=== PATIENT | male | born 1950 | race African-American/Black ===

== ENCOUNTER 2021-10-04 14:06 | Inpatient (IN) | payer OTHER ==
[~2021-10-04] VITALS: Ht 180.3 cm; Wt 102.6 kg
--- NOTE | ~2021-10-04 | EMS ---
[address] [address] EMS Patient Care Report Name: ARCADIO CEE Room #: 448-P ADM IN M.R.#: [id number] Admission: 10/04/21 Attend Phys: David Dowling MD Discharge: Date of : 48 Report #: [id number] THIS REPORT FOR: //name// Report Transmitted: 10/05/2021 12:50 EMS Care Summary [place], [place]/[facility] Incident [phone] @ 10/04/2021 13:32 Incident Location [address] [place] [address] Patient ARCADIO CEE Male, 71 Years 1950 Patient Address [address] [place] [address] Patient History Chronic Obstructive Pulmonary Disease (COPD),Diabetes,Hypertension (HTN), Patient Allergies No known allergies, Patient Medications None Reported, Chief Complaint COPD EXACERBATION Disposition Transported No Lights/[place] Dispatch Reason Breathing Problem Transported To [facility] Narrative M537 DISPATCHED TO A BREATHING PROBLEM AT ADDRESS STATED ABOVE. M537 ARRIVED ON SCENE TO FIND PT, A 71YO MALE SITTING OUTSIDE SMOKING A [address] [address] EMS Patient Care Report Name: ARCADIO CEE Room #: 448-P ADM IN M.Torsten.#: [id number] Admission: 10/04/21 Attend Phys: David Dowling MD Discharge: Date of : 48 Report #: [id number] CIGARETTE IN THE COLD WEATHER WITH SHORTS ON. UPON INITIAL CONTACT, PT IS SELF MAINTAINING OWN ABC???S, ALERT AND ORIENTED, AND NO OBVIOUS INJURIES NOTED. PT STATES HE HAS BEEN HAVING DIFFICULTY BREATHING AND FEELS LIKE HES JUST SHORT OF AIR. PT STATES HE HAS A HX OF COPD AND WAS HOSPITALIZED 3 WEEKS AGO AT [facility]. PT STATES HIS ABDOMEN JUST FEELS REALLY FULL. UPON PRIMARY ASSESSMENT ON SCENE, PT SKIN IS PWD AND PUPILS ARE ROUND EQUAL AND REACTIVE. PT HAS STRONG RADIAL PULSES AND GOOD CAPILLARY REFILL. PT IS ABLE TO SPEAK CLEARLY AND MOVE PURPOSEFULLY. PMS IS INTACT IN ALL EXTREMITIES. PT DENIES ANY CHEST PAIN, NAUSEA, VOMITING, OR DIARRHEA OR ANY OTHER PAIN OR DISCOMFORT NOT ASSOCIATED WITH CHIEF COMPLAINT. PT WAS PLACED ON COT IN A POSITION OF COMFORT AND SECURED WITH ALL AVAILABLE STRAPS. PT LOADED INTO AMBULANCE VIA STRETCHER AND VITALS ASSESSED ON SCENE NOTED ABOVE. PT CONNECTED TO 4L OF OXYGEN VIA NASAL CANULA IMPROVING ROOM AIR SATS FROM 85% TO 95%. VITALS REASSESSED ENROUTE WHILE CONTINUOUSLY MONITORING ABC???S. RADIO REPORT CALLED INTO ER AND PT TRANSPORTED TO HOSPITAL WITHOUT INCIDENT. UPON ARRIVAL TO ED, PT WAS BROUGHT INSIDE TO ER VIA STRETCHER AND TRANSFERRED TO HOSPITAL BED. ALL PT BELONGINGS TRANSFERRED TO PTS ROOM. VERBAL REPORT GIVEN TO RECEIVING RN AND PT CARE TRANSFERRED. Initial Vitals @13:50P: 82,R: 18,BP: 187/92,SpO2: 95, @13:42P: 78,R: 20,BP: 160/92,Pain: 0/10,GCS: 15,Glucose: 106,SpO2: 85,Revised Trauma: 12, Assessments @13:42MENTAL:Person Oriented,Event Oriented,Place Oriented,Time Oriented,SKIN:HEENT:Eyes: Right Pupil: 3-mm,Eyes: Left Pupil: 3-mm,Head/Face: No Abnormalities,Neck/Airway: No Abnormalities,LUNG SOUNDS:Left Upper: Distension,Right Lower: Distension,Right Upper: Distension,Left Lower: Distension,ABDOMEN:Left Upper: Distension,Right Lower: Distension,Right Upper: Distension,Left Lower: Distension,PELVIS//GI:No Abnormalities,EXTREMITIES:Capillary Refill: Right Upper: 3 Sec,Left Arm: No Abnormalities,Right Arm: No Abnormalities,Left Leg: No Abnormalities,Right Leg: [facility] [address] [place] [address] EMS Patient Care Report Name: ARCADIO CEE Room #: 448-P ADM IN M.R.#: [id number] Admission: 10/04/21 Attend Phys: David Dowling MD Discharge: Date of : 48 Report #: [id number] No Abnormalities,PULSE:Radial: 2+ Normal,NEURO:No Abnormalities, Impression Chronic Obstructive Pulmonary Disease (COPD) Procedures @13:38 ALS Assessment Response: UnchangedSucceeded @13:40 Stretcher Response: Unchanged @13:43 Oxygen FlowRate: 4 Device: Nasal Cannula (NC) Response: ImprovedSucceeded Timeline 13:31,Call Received 13:31,Dispatch Notified 13:32,Dispatched 13:33,En Route 13:37,On Scene 13:38,At Patient 13:38,ALS Assessment,Response: UnchangedSucceeded, 13:40,Stretcher,Response: Unchanged 13:42,BP: 160/92 M,PULSE: 78,RR: 20 R,SPO2: 85 Ox,ETCO2: ,B,PAIN: 0,GCS: 15, 13:43,Oxygen FlowRate: 4 Device: Nasal Cannula (NC) Response: ImprovedSucceeded, 13:48,Depart Scene 13:50,BP: 187/92 M,PULSE: 82,RR: 18 R,SPO2: 95 Ox,ETCO2: ,BG: ,PAIN: ,GCS: , 14:07,At Destination 14:11,Call Closed Disclaimer v1.1 Copyright 2021 [facility] [place] This EMS Care Summary contains data elements from the applicable legal record (which may be displayed differently). It is designed to provide pertinent information for the following purposes: continuity of care, clinical quality, and state data reporting. The complete legal record is available to ED staff and administrators of the receiving hospital in [facility]'s Patient Tracker. All data is provided "as is."
[2021-10-04 14:08] VITALS: BP 168/106
[2021-10-04 14:39] LABS: HEMATOCRIT 29.6 % (42.0-52.0); MCHC 27.2 g/dL (28.0-37.0); MCV 69.9 fL (80.0-100.0); PLATELET COUNT 185 thou/uL (150-400); RBC 4.23 mil/uL (4.50-6.00); RDW 26.5 % (10.5-14.5); WBC 14.7 thou/uL (4.0-11.0)
[2021-10-04 14:45] LABS: CALCIUM 9.4 mg/dL (8.5-10.1); CREATININE 1.5 mg/dL (0.7-1.3); POTASSIUM 4.4 mmol/L (3.5-5.1)
[2021-10-04 14:56] LABS: ALBUMIN 3.4 g/dL (3.4-5.0); TOTAL BILIRUBIN 0.9 mg/dL (0.2-1.0); TOTAL PROTEIN 6.3 g/dL (6.4-8.2)
[2021-10-04 15:12] LABS: ABSOLUTE NEUTROPHILS 3.2 thou/uL (1.4-8.2)
[2021-10-04 15:13] LABS: HYPOCHROMASIA 3+
[2021-10-04 15:14] LABS: MICROCYTES 1+
[2021-10-04 15:15] LABS: ANISOCYTOSIS 2+
[2021-10-04 18:21] VITALS: BP 180/108
--- NOTE | 2021-10-04 22:00 | NUR ---
REPORT CALLED TO FLOOR, GIVEN TO JEANINE ANDUJAR
[2021-10-04 22:10] VITALS: BP 180/108
[2021-10-05 03:42] LABS: HEMATOCRIT 27.9 % (42.0-52.0); HEMOGLOBIN 7.6 gm/dL (14.0-18.0); MCH 19.1 pg (26.0-34.0); MCHC 27.2 g/dL (28.0-37.0); MCV 70.2 fL (80.0-100.0); RBC 3.98 mil/uL (4.50-6.00); RDW 26.1 % (10.5-14.5); WBC 13.1 thou/uL (4.0-11.0)
[2021-10-05 04:46] LABS: CALCIUM 8.9 mg/dL (8.5-10.1); CREATININE 1.5 mg/dL (0.7-1.3); POTASSIUM 4.8 mmol/L (3.5-5.1)
[2021-10-05 06:49] VITALS: BP 176/60
--- NOTE | 2021-10-05 07:59 | NUR ---
RECEIVED CARE OF THIS PATIENT AT 2220 FROM ED VIA CART ACCOMPANIED BY ED PERSONEL. PATIENT ALERT AND ORIENTED X4 BUT VERY IMPULSIVE. GETS UP BY SELF EVEN WHEN REMINED SEVERAL TIMES TO CALL BEFORE GETTING UP. PULLS OFF TELE MONITOR, TAKES OFF O2. O2 AT 6L/NC. PULLED IV OUT. DENIES PAIN. UP WITH SBA ONLY. SLEPT LITTLE THIS SHIFT.
--- NOTE | 2021-10-05 08:05 | EKG ---
[place] [address] [place] [address] ELECTROCARDIOGRAM REPORT Name: ARCADIO CEE Room #: 448-P ADM IN M.R.#: [id number] Admission: 10/04/21 Attend Phys: David Dowling MD Discharge: Date of : 48 Report #: [id number] [facility] ED Test Date: 2021-10-04 Test Time: 14:32:47 Pat Name: ARCADIO CEE Department: Room: [facility] Gender: M Primary Montessori Teacher: ed : 1950 Requested By: Michael Ortega Order Number: [id number] MD: Heber Long Measurements Intervals [place] Rate: 83 P: 39 OK: 151 QRS: 159 QRSD: 84 T: 35 QT: 406 QTc: 477 Interpretive Statements Sinus rhythm Multiple premature complexes, vent & supraven Low voltage Borderline prolonged QT interval No previous ECG available for comparison Electronically Signed On 10-05-2021 8:05:46 [employer]PERVIS[employer] by Heber Long [email or web address] <ELECTRONICALLY SIGNED> By: Heber Long MD, [facility] 10/05/21 0805 1432 1432 Heber Long MD, FACC /EPI
--- NOTE | 2021-10-05 08:25 | NUR ---
ASSUMED CARE OF PATIENT NO COMPLAINTS OR ISSUES. PATIENT NOT WANTING TO KEEP TELE MONITOR IN PLACE AND D/C IV OVERNIGHT. WILL TRY AND REGAIN IV ACCESS TODAY AND REDIRECT PATIENT TO KEEP MONITOR ON.
[2021-10-05 08:35] VITALS: BP 145/81
[2021-10-05 12:00] VITALS: BP 132/78
[2021-10-05 16:00] VITALS: BP 106/58
--- NOTE | 2021-10-05 17:35 | NUR ---
Patient with [facility]. Faxed clinical and sp with [facility] transfer team no beds avail.
[2021-10-05 21:17] VITALS: BP 145/84
[2021-10-06 07:00] VITALS: BP 149/77
[2021-10-06 07:45] LABS: HEMOGLOBIN 8.5 gm/dL (14.0-18.0); MCH 18.9 pg (26.0-34.0); MCHC 25.8 g/dL (28.0-37.0); MCV 73.4 fL (80.0-100.0); RBC 4.49 mil/uL (4.50-6.00); RDW 27.1 % (10.5-14.5)
[2021-10-06 07:59] LABS: CALCIUM 9.9 mg/dL (8.5-10.1); CREATININE 2.1 mg/dL (0.7-1.3); POTASSIUM 5.5 mmol/L (3.5-5.1)
--- NOTE | 2021-10-06 08:27 | NUR ---
PT BS 33 THIS AM, PT GIVEN 320CC ORANGE JUICE MIXED WITH 2 SUGAR PACKETS. PT AWAKE, A&OX2, LYING IN BED. DENIES DISCOMFORT. WILL RETAKE BS IN 30 MINUTES. SITTER AT BEDSIDE.
--- NOTE | 2021-10-06 09:40 | NUR ---
[facility] they [facility] h[facility] this am and know better if M/S tele bed avail. Faxed updated vitals.
--- NOTE | 2021-10-06 10:29 | 2DMMODE ---
[facility] [address] [place] [address] 2 D/M-MODE ECHOCARDIOGRAM Name: ARCADIO CEE Room #: 448-P ADM IN M.R.#: [id number] Admission: 10/04/21 Attend Phys: David Dowling MD Discharge: Date of : 48 Report #: [id number] THIS REPORT FOR: cc: FAM - Family physician unknown FAM - Family physician unknown Kalen Taylor MD [facility] ~ APPROVED REPORT Study performed: 10/06/2021 09:49:08 EXAM: Comprehensive 2D, Doppler, and color-flow Echocardiogram Patient Location: Bedside Room #: [facility] Status: routine BSA: 2.22 HR: 73 bpm BP: 149/77 mmHg Rhythm: Sinus arrhythmia Other Information Study Quality: Adequate Technically limited study due to uncooperative patient. Not all measurements taken. Indications Short of breath, leg swelling, CHF. Hx: COPD, HTN, DM, CHF. 2D Dimensions RVDd: 50.00 mm IVSd: 14.00 (7-11mm) LVDd: 43.00 mm PWd: 14.00 (7-11mm) Ascending Ao: 38.00 (22-36mm) LVDs: 30.05 (25-40mm) Left Atrium: 39.08 (27-40mm) Aortic Root: 35.60 mm Aortic Valve AoV Peak Enoc.: 1.73 m/s AO Peak Gr.: 11.92 mmHg Mitral Valve E/A Ratio: 0.5 MV Decel. Time: 290.99 ms [facility] [address] [place] [address] 2 D/M-MODE ECHOCARDIOGRAM Name: ARCADIO CEE Room #: 448-P ADM IN M.R.#: [id number] Admission: 10/04/21 Attend Phys: David Dowling MD Discharge: Date of : 48 Report #: [id number] Max Enoc.: 0.35 m/s MV A Enoc.: 0.66 m/s MV PHT: 84.39 ms Tricuspid Valve TR Peak Enoc.: 4.10 m/s RAP Estimate: 15.00 mmHg TR Peak Gr.: 67.36 mmHg PA Pressure: 82.00 mmHg Left Ventricle The left ventricle is normal size. There is normal LV segmental wall motion. Flattened septum consistent with right ventricular pressure overload. Moderate concentric left ventricular hypertrophy. Left ventricular systolic function is normal. LVEF is 60-65%. Mild diastolic dysfunction is present (impaired relaxation pattern). Right Ventricle Right ventricle is moderately dilated. Right ventricle is hypokinetic. Atria The left atrium size is normal. Right atrium is severely dilated. Aortic Valve The aortic valve is normal in structure; mildly calcified. Mild aortic regurgitation. There is no aortic valvular stenosis. Mitral Valve The mitral valve is normal in structure. There is no mitral valve regurgitation noted. No evidence of mitral valve stenosis. Tricuspid Valve The tricuspid valve is normal in structure. Moderate to severe tricuspid regurgitation. Severe pulmonary hypertension. Estimated PAP is 80mmHg. Pulmonic Valve The pulmonary valve is normal in structure. Mild to moderate pulmonic regurgitation. Great Vessels The aortic root is normal in size. The ascending aorta is borderline dilated. IVC is dilated and collapses <50% with inspiration. [facility] [address] [place] [address] 2 D/M-MODE ECHOCARDIOGRAM Name: ARCADIO CEE Room #: 448-P [facility] IN ..#: [id number] Admission: 10/04/21 Attend Phys: David Dowling MD Discharge: Date of : 48 Report #: [id number] Pericardium There is no pericardial effusion. Small right plerual effusion noted. <Conclusion> Normal left ventricle size with moderate concentric hypertrophy Ejection fraction 60% Right ventricle moderately dilated/hypokinetic Right atrium severely dilated Aortic valve mildly sclerotic without stenosis Mild aortic valve insufficiency Mild mitral annular calcification without stenosis Mild mitral valve insufficiency Moderate to severe tricuspid valve insufficiency Severe pulmonary hypertension PA pressure systolic estimated 80 mmHg No pericardial effusion Borderline dilated ascending aorta <ELECTRONICALLY SIGNED> By: Kalen Taylor MD, [facility] 10/06/21 1029 1029 1029 Kalen Taylor MD, FACC /INF
[2021-10-06] MEDS ORDERED: FLOMAX0.4 MG PO (15:01)
[2021-10-06] MEDS ORDERED: LISINOPRIL10 MG PO (15:01)
[2021-10-06] MEDS ORDERED: PROSCAR 5MG TABL5 M1 PO (15:02)
[2021-10-06] MEDS ORDERED: CALCIUM 500 MG1 EAC1 PO (15:04)
[2021-10-06] MEDS ORDERED: NICOTINE PATCH1 EAC2 TRANSDERM (15:07)
[2021-10-06] MEDS ORDERED: TESSALON PERLE100 MG PO (15:08)
[2021-10-06] MEDS ORDERED: OXYBUTYNIN 5 MG5 M2 PO (15:17)
[2021-10-06] MEDS ORDERED: VITAMIN B12-FO1 EAC1 PO (15:17)
[2021-10-06] MEDS ORDERED: BROVANA15 MCG/2 M INH (15:18)
[2021-10-06] MEDS ORDERED: IPRAT-ALBUT 0.5-3 ML INH (15:19)
[2021-10-06] MEDS ORDERED: CARVEDILOL12.5 MG PO (15:20)
--- NOTE | 2021-10-06 15:34 | NUR ---
spoke with [facility] they may have a bed avail today for transfer. Dr Dowling reports patient can be med/surg. [facility] had a number for . [facility] [phone]. Called and spoke with son. Patient resides at home. He has all needs on one level. He uses oxygen at home uss at 4-5 liters. Patient gets confused and takes oxygen off his sats dropped 69-72 so EMS called. Requested call unit to discuss might be able to transfer to [facility].
[2021-10-06] MEDS ORDERED: LACTULOSE PO (15:38)
[2021-10-06] MEDS ORDERED: XARELTO20 MG PO (15:39)
[2021-10-06] MEDS ORDERED: PULMICORT0.5 MG/2 M INH (15:39)
[2021-10-06] MEDS ORDERED: SIMVASTATIN80 MG PO (15:40)
[2021-10-06] MEDS ORDERED: NORVASC10 MG PO (15:40)
[2021-10-06] MEDS ORDERED: SEROQUEL 25 MG25 MG PO (15:42)
[2021-10-06] MEDS ORDERED: FAMOTIDINE 20 M20 MG PO (15:43)
[2021-10-06] MEDS ORDERED: KLOR-CON M2020 MEQ PO (15:44)
[2021-10-06] MEDS ORDERED: FUROSEMIDE 40 M40 MG PO (15:45)
[2021-10-06] MEDS ORDERED: METFORMIN HCL500 MG PO (15:51)
[2021-10-06 16:23] VITALS: BP 134/86
--- NOTE | 2021-10-06 17:28 | NUR ---
[facility] called and [facility]. Chart copied. Transfer form on chart and completed. aware of transfer and aggreeable. [facility] to transport. RN to call report. Dr Levi Parker accepting of patient.
--- NOTE | 2021-10-06 17:57 | NUR ---
PT INCREASED CONFUSION COMPARED WITH THIS AM AND NOON, UNABLE TO KEEP EYES OPEN DURING CONVERSATION, PT EASILY AROUSABLE BUT FALLING ALSEEP MIDSENTENCE. DR. CALLEJAS NOTIFIED, NEW ORDER FOR ABGs. LASIX GIVEN WITH 300 OUTPUT, ALSO REPORTED TO NEW ORDER TO BLADDER SCAN PATIENT. SCAN SHOWED 179CC IN BLADDER.
[2021-10-06 18:06] LABS: BE(vivo) -0.4 mmol/L (-2 to +3); HCO3 25.7 mmol/L (22.0-26.0); PCO2 49.8 mmHg (35.0-45.0); pH 7.331 (7.360-7.450); sO2 86.5 % (92.0-98.0)
[2021-10-06 18:07] LABS: PO2 55.4 mmHg (80.0-100.0)
== END 2021-10-06 19:57 | disposition short-term general hospital (02) | DRG 291 ==
LOC: ER 14:06 → 4S 17:21 → EROBS 17:21 → 4S 22:11
PROVIDERS: Emergency Medicine; ADMIT Hospitalist; ATTEND Hospitalist
DX: I11.0 Hypertensive heart disease with heart failure (principal); I50.33 Acute on chronic diastolic (congestive) heart failure; J96.11 Chronic respiratory failure with hypoxia; N17.9 Acute kidney failure, unspecified; C91.10 Chronic lymphocytic leukemia of B-cell type not having achieved remission; J44.1 Chronic obstructive pulmonary disease with (acute) exacerbation; E11.9 Type 2 diabetes mellitus without complications; Z20.822 Contact with and (suspected) exposure to COVID-19; F17.210 Nicotine dependence, cigarettes, uncomplicated; F03.90 Unspecified dementia, unspecified severity, without behavioral disturbance, psychotic disturbance, mood disturbance, and anxiety; R53.81 Other malaise; D50.9 Iron deficiency anemia, unspecified; E87.5 Hyperkalemia; Z79.899 Other long term (current) drug therapy
CPT/HCPCS: 10100